=== PATIENT | female | born 1950 | race Caucasian/White ===

== ENCOUNTER 2017-06-18 15:51 | Emergency (ER) | payer OTHER ==
[2017-06-18 15:56] VITALS: TEMP 99.3; BMI 36.2
--- NOTE | 2017-06-18 16:11 | PDOC ---
History of Present Illness - General History Source: Patient, Family Exam Limitations: No Limitations - History of Present Illness Initial Comments: 06/18/17 16:19 The patient is a 67 year female, accompanied by daughter, with a past medical history of hypertension, hyperlipidemia, hypothyroidism, who presents to the emergency department with generalized weakness, dry cough, lightheadedness, and subjective fever since 3 days ago. She denies experiencing similar symptoms in the past. She denies any modifying factors. She denies any recent travel. The patient denies dysuria and abdominal pain. She denies any vomiting. She denies any flu vaccine this year. The patient denies any history of smoking. She lives at home alone. PCP [facility] <Anna Fernandez - Last Filed: 06/18/17 18:12> <Son Toscano - Last Filed: 06/18/17 19:46> - General Chief Complaint: Respiratory Stated Complaint: FEVER Time Seen by Provider: 06/18/17 16:11 Past History <Anna Fernandez - Last Filed: 06/18/17 18:12> - Past Medical History COPD: No HTN: Yes Thyroid Disease: Yes - Surgical History Abdominal Surgery: Yes - Immunization History Td Vaccination: Yes TDAP Vaccination: Yes Immunization Up to Date: No - Suicide/Smoking/Psychosocial Hx Smoking Status: No Smoking History: Never smoked Have you smoked in the past 12 months: No Number of Cigarettes Smoked Daily: 0 Hx Alcohol Use: No Drug/Substance Use Hx: No Substance Use Type: None <Son Toscano - Last Filed: 06/18/17 19:46> - Past Medical History Allergies/Adverse Reactions: Allergies Allergy/AdvReac Type Severity Reaction Status Date / Time Sulfa (Sulfonamide Allergy Verified 06/18/17 15:55 Antibiotics) [Sulfa(Sulfonamide Antibiotics)] Home Medications: Ambulatory Orders Levothyroxine [Synthroid -] 150 mcg PO DAILY@0700 #0 tablet 05/08/12 Budesonide/Formoterol Fumarate [Symbicort 160-4.5 Mcg Inhaler] 2 inh IH DAILY Atorvastatin Ca [Lipitor] 20 mg PO HS 06/18/17 Losartan/Hydrochlorothiazide [Hyzaar 50-12.5 Tablet] 1 each PO DAILY 02/10/18 Oseltamivir Phosphate [Tamiflu] 75 mg PO BID #10 capsule 06/18/17 Sitagliptin Phos/Metformin HCl [Janumet 50-1,000 mg Tablet] 1 each PO BID Review of Systems - Review of Systems Able to Perform ROS?: Yes All Other Systems: Reviewed and Negative <Anna Fernandez - Last Filed: 06/18/17 18:12> - Review of Systems Constitutional: Yes: Chills. No: Fever, Night Sweats HEENTM: Yes: Nose Congestion. No: Throat Swelling Respiratory: Yes: Cough. No: Shortness of Breath Cardiac (ROS): No: Chest Pain ABD/GI: Yes: Diarrhea, Nausea. No: Vomiting : No: Burning, Dysuria, Frequency Musculoskeletal: Yes: Muscle Pain Neurological: No: Headache All Other Systems: Reviewed and Negative <Son Toscano - Last Filed: 06/18/17 19:46> *Physical Exam - Vital Signs Last Vital Signs Temp Pulse Resp BP Pulse Ox 99.3 F 89 18 98/59 99 06/18/17 15:52 06/18/17 15:52 06/18/17 15:52 06/18/17 15:52 06/18/17 15:52 - Physical Exam Comments: 06/18/17 16:27 GENERAL: The patient is awake, alert, and fully oriented, in no acute distress. HEAD: Normal with no signs of trauma. EYES: Pupils equal, round and reactive to light, extraocular movements intact, sclera anicteric, conjunctiva clear with no pallor. ENT: Dry mucous membranes. Ears normal, nares patent, oropharynx clear without exudates. NECK: Normal range of motion, supple without lymphadenopathy, JVD, or masses. LUNGS: Breath sounds equal, clear to auscultation bilaterally. No wheeze/ crackles. No accessory muscle use. HEART: Regular rate and rhythm, normal S1 and S2 without murmur or rub. ABDOMEN: Soft/nontender/nondistended. BS wnl. No guarding or rebound. No palpable masses. No hepatosplenomegaly. EXTREMITIES: Normal range of motion, no edema. No clubbing or cyanosis. No cords , erythema, or tenderness. NEUROLOGICAL: Cranial nerves II through XII grossly intact. Normal speech, normal gait. PSYCH: Normal mood, normal affect. SKIN: Warm, Dry, normal turgor, no rashes or lesions noted. <Anna Fernandez - Last Filed: 06/18/17 18:12> - Vital Signs Last Vital Signs Temp Pulse Resp BP Pulse Ox 99.3 F 89 18 98/59 99 06/18/17 15:52 06/18/17 15:52 06/18/17 15:52 06/18/17 15:52 06/18/17 15:52 <Son Toscano - Last Filed: 06/18/17 19:46> Heart Score/ECG Review - ECG Intrepretation Rhythm: Regular Rhythm - Partridge Partridge: Normal <Anna Fernandez - Last Filed: 06/18/17 18:12> #1 ECG reviewed & interpreted by me at: 18:06 General ECG Interpretation: Sinus Rhythm, Normal Rate (78), Normal Intervals ( qtc 428), No acute ischemic changes <Son Toscano - Last Filed: 06/18/17 19:46> ED Treatment Course - LABORATORY CBC & Chemistry Diagram: 06/18/17 16:42 06/18/17 16:42 <Anna Fernandez - Last Filed: 06/18/17 18:12> - LABORATORY CBC & Chemistry Diagram: 06/18/17 16:42 06/18/17 16:42 <Son Tocsano - Last Filed: 06/18/17 19:46> Medical Decision Making - Medical Decision Making 06/18/17 16:40 67y/o F HTN, DM, high chol p/w 3d progressive chills, myalgia, dry cough without focal scott/throat pain/SOB/vomiting/dysuria. Glucose has been under control, has been light-headed but no LOC/CP/palp. Presents today for evaluation. No flu vaccination, no known sick contacts or recent travel. Tolerated PO today. low grade temp 99, BP stable, O2 sat normal alert, well appearing seated in stretcher speaking full sentences throat clear, lungs clear, abd benign 67y/o F with nonspecific ЕКАТЕРИНА, no localizing findings on history/physical exam. Presentation could be consistent with viral process, r/o influenza (swabs not currently available). r/o pna, metabolic derangement from DKA. sepsis protocol initiated tylenol for fever ekg, cxr ivf reassess. if above wnl, would treat empirically for influenza 06/18/17 17:54 White count within normal limits, 4.6 with normal differential. No bands. Chemistries notable for creatinine of 1.5, slightly above baseline of 1.3. Lactate slightly elevated at 2.1. Chest x-ray shows some congestion, question interstitial increased markings, but no acute infiltrate. now asleep, UA pending, feels well. Will repeat lactate given minimal elevation and no other concerning findings. Reassess. 06/18/17 19:40 Feels much better, ambulated steadily to the restroom, no longer lightheaded, no complaints. Status post normal saline, urinalysis clear, repeat lactate slightly improved, vital signs remain normal. Agrees with discharge plan on Tamiflu for presumed influenza, understands return criteria. Daughter at bedside, both in agreement. <Son Toscano - Last Filed: 06/18/17 19:46> *DC/Admit/Observation/Transfer - Attestations Scribe Attestion: 06/18/17 16:29 Documentation prepared by Anna Fernandez, acting as back office medical assistant for Son Toscano MD, /DO. <Anna Fernandez - Last Filed: 06/18/17 18:12> <Son Toscano - Last Filed: 06/18/17 19:46> Diagnosis at time of Disposition: Upper respiratory infection Qualifiers: URI type: unspecified URI Qualified Code(s): J06.9 - Acute upper respiratory infection, unspecified - Discharge Dispostion Disposition: HOME Condition at time of disposition: Improved - Prescriptions Prescriptions: Oseltamivir Phosphate [Tamiflu] 75 mg PO BID #10 capsule - Referrals Referrals: Javi Marquez MD [Primary Care Provider] - - Patient Instructions Printed Discharge Instructions: DI for Fever (Symptom) -- Adult, DI for Viral Upper Respiratory Infection -- Adult, DI for Influenza -- Adult Additional Instructions: Activity as tolerated. Stay hydrated. Blood tests, a chest xray, and a urine test showed no acute abnormalities. You received some fluids through the vein to help hydrate. Your symptoms may be due to flu. We are treating you with Tamiflu because of the symptoms you have. Tylenol 1000 mg every 8 hours and/or ibuprofen 600 mg every 8 hours as needed for pain. Continue your medications as previously prescribed by your physician. You should follow up with Dr. Marquez as soon as possible regarding today's emergency department visit. Return to the emergency department for any new or concerning symptoms, particularly high fevers or chills, severe cough or difficulty breathing, worsening weakness or high sugar levels.
[2017-06-18] MEDS ORDERED: SODIUM CHLORIDE 1,000 ML IV STA (16:12)
[2017-06-18] MEDS ORDERED: ACETAMINOPHEN 500 MG TABLET (FP) PO ONE (16:24)
[2017-06-18] MEDS ORDERED: ACETAMINOPHEN 325 MG TABLET (FP) ONE (16:34)
[2017-06-18 17:05] LABS: BASO % 0.7 % (0-2.0); EOS % 0.7 % (0-4.5); HEMATOCRIT 33.1 % (32.4-45.2); HEMOGLOBIN 11.3 GM/dL (10.7-15.3); LYMPH % 32.5 % (8-40); MCH 29.8 pg (25.7-33.7); MEAN CELL VOLUME 87.5 fl (80-96); MEAN PLT VOLUME 8.9 fl (7.5-11.1); MONO % 15.6 % (3.8-10.2); NEUT % 50.5 % (42.8-82.8); PLATELET COUNT 200 K/MM3 (134-434); RBC 3.78 M/mm3 (3.60-5.2); RDW 14.5 % (11.6-15.6); WHITE BLOOD COUNT 4.6 K/mm3 (4.0-10.0)
[2017-06-18 17:17] LABS: INR 1.13 (0.82-1.09); PROTHROMBIN TIME (PATIENT) 12.8 SEC (9.98-11.88)
[2017-06-18 17:21] LABS: ACTIVATED PTT 30.6 SECONDS (26.9-34.4)
[2017-06-18 17:24] LABS: ALBUMIN 3.6 g/dl (3.4-5.0); ANION GAP 8 (8-16); BLOOD UREA NITROGEN 27 mg/dL (7-18); CALCIUM 9.3 mg/dL (8.5-10.1); CHLORIDE 101 mmol/L (98-107); CO2 27 mmol/L (21-32); CREATININE 1.5 mg/dL (0.55-1.02); GLUCOSE,RANDOM 147 mg/dL (74-106); SGPT/ALT 36 U/L (12-78); SODIUM 136 mmol/L (136-145)
[2017-06-18 17:29] LABS: ALK PHOS 75 U/L (45-117); BILIRUBIN,TOTAL 0.6 mg/dL (0.2-1.0); TOT PROT 7.5 g/dl (6.4-8.2)
[2017-06-18 17:30] LABS: POTASSIUM 4.7 mmol/L (3.5-5.1); SGOT/AST 24 U/L (15-37)
[2017-06-18 18:37] LABS: URINE APPEARANCE CLEAR; URINE BILIRUBIN NEGATIVE (NEGATIVE); URINE BLOOD NEGATIVE (NEGATIVE); URINE COLOR YELLOW; URINE GLUCOSE (UA) NEGATIVE (NEGATIVE); URINE KETONE NEGATIVE (NEGATIVE); URINE LEUK ESTERASE NEGATIVE (NEGATIVE); URINE NITRITE NEGATIVE (NEGATIVE); URINE PROTEIN NEGATIVE (NEGATIVE); URINE UROBILINOGEN NEGATIVE mg/dL (0.2-1.0)
[2017-06-18 20:04] VITALS: BP 132/78; PULSE 80
[2017-06-18 22:15] LABS: VENOUS PC02 48.5 mmHg (38-52); VENOUS PH 7.37 (7.32-7.42)
--- NOTE | 2017-06-19 08:44 | EKG ---
Test Reason : Blood Pressure : / mmHG Vent. Rate : 078 BPM Atrial Rate : 078 BPM P-R Int : 168 ms QRS Dur : 080 ms QT Int : 376 ms P-R-T Axes : 047 019 019 degrees QTc Int : 428 ms NORMAL SINUS RHYTHM NORMAL ECG WHEN COMPARED WITH ECG OF 31-JUL-2012 20:31, NO SIGNIFICANT CHANGE WAS FOUND Confirmed by NICOLAS DOMINIQUE MD ([id number]) on 06/19/2017 8:44:08 AM Referred By: Confirmed By:NICOLAS DOMINIQUE MD
== END 2017-06-18 20:04 | disposition home or self-care (01) ==
LOC: JER 15:51
PROC: 3E0337Z Introduction of Electrolytic and Water Balance Substance into Peripheral Vein, Percutaneous Approach (ICD-10-PCS; principal; 2017-06-18)
DX: J06.9 Acute upper respiratory infection, unspecified (principal); I10 Essential (primary) hypertension; E03.9 Hypothyroidism, unspecified; E78.00 Pure hypercholesterolemia, unspecified
CPT/HCPCS: 36415; 71045-TC; 80053; 81003; 82550; 82803; 83605; 84484; 85025; 85610; 85730; 87040; 87086; 93005; 93010; 99282-25

== ENCOUNTER 2021-06-11 09:18 | Emergency (ER) | payer OTHER ==
[2021-06-11 09:27] VITALS: BP 133/81; PULSE 71; TEMP 98.1; BMI 36.2
== END 2021-06-11 11:45 | disposition home or self-care (01) ==
LOC: JER 09:18
DX: M79.605 Pain in left leg (principal)
CPT/HCPCS: 93971-TC; 99283-25